=== PATIENT | female | born 1990 | race Caucasian/White ===

== ENCOUNTER 2019-08-23 08:10 | Outpatient (CLI) | payer OTHER ==
[~2019-08-23] VITALS: Ht 162.6 cm; Wt 59.4 kg
[~2019-08-23 08:10] MED LIST: FLONASEALLERGY NS; MAG-OX 400400 MG/TAB PO
[2019-08-23 08:27] VITALS: BP 156/80; PULSE 75
[2019-08-23 09:15] VITALS: BP 125/80; PULSE 73
[2019-08-23 09:30] VITALS: BP 116/69; PULSE 85
[2019-08-23 09:45] VITALS: BP 127/65; PULSE 65
[2019-08-23 09:58] LABS: GLUCOSE,CSF 49 mg/dL (40-70); TOTAL PROTEIN,CSF 36 mg/dL (15-45)
[2019-08-23 10:00] VITALS: BP 115/61; PULSE 64
[2019-08-23 10:15] VITALS: BP 120/76; PULSE 85
[2019-08-23 11:35] LABS: CSF COLOR COLORLESS
[2019-08-23 11:36] LABS: CSF APPEARANCE CLEAR; CSF MONONUCLEAR 0 % (70-100); CSF POLYMORPHONUCLEAR 0 % (0-6); CSF RBC 58 /mm3 (0-0)
== END 2019-08-27 15:36 | disposition home or self-care (01) ==
LOC: COL.RAD 08:10
PROVIDERS: Psychiatry & Neurology Neurology
DX: G43.009 Migraine without aura, not intractable, without status migrainosus (principal); G35 Multiple sclerosis

== ENCOUNTER 2019-08-27 09:43 | Emergency (ER) | payer OTHER ==
[~2019-08-27] VITALS: Ht 162.6 cm; Wt 56.8 kg
[2019-08-27 10:13] VITALS: TEMP 98.8
[2019-08-27 12:23] VITALS: BP 111/73; PULSE 84
== END 2019-08-27 12:25 | disposition home or self-care (01) ==
LOC: COL.ER 09:43
DX: G97.1 Other reaction to spinal and lumbar puncture (principal)
CPT/HCPCS: J1200; J2765

== ENCOUNTER → 2019-09-06 | Outpatient (CLI) | payer OTHER | LOC: COL.RAD 14:43 | DX: G43.009 Migraine without aura, not intractable, without status migrainosus (principal); M48.02 Spinal stenosis, cervical region; M50.223 Other cervical disc displacement at C6-C7 level; G95.89 Other specified diseases of spinal cord ==

== ENCOUNTER → 2019-10-29 | Outpatient (CLI) | payer OTHER | LOC: COL.RAD 14:33 | DX: M54.12 Radiculopathy, cervical region (principal) ==

== ENCOUNTER → 2019-12-06 | Outpatient (CLI) | payer OTHER | LOC: COL.LAB 13:29 | DX: Z20.828 Contact with and (suspected) exposure to other viral communicable diseases (principal) ==

== ENCOUNTER → 2019-12-31 | Outpatient (CLI) | payer OTHER | LOC: MHCPAIN 15:10 | DX: M48.02 Spinal stenosis, cervical region (principal); M47.812 Spondylosis without myelopathy or radiculopathy, cervical region; M54.2 Cervicalgia; R51 Headache; G89.29 Other chronic pain | CPT/HCPCS: G0463 ==

== ENCOUNTER 2020-01-03 13:45 | Outpatient (RCR) | payer OTHER | END 2020-01-03 15:35 | disposition home or self-care (01) | LOC: WSC 13:45 | DX: G43.909 Migraine, unspecified, not intractable, without status migrainosus (principal) ==